=== PATIENT | female | born 1940 | race Caucasian/White ===

== ENCOUNTER 2017-02-22 08:55 | Emergency (ER) | payer MEDICARE ==
[~2017-02-22] VITALS: Ht 162.6 cm; Wt 63.0 kg
[~2017-02-22 08:55] MED LIST: FLUTISP; HYDR12.55 PO; NORV5TAB PO; PROTPAK PO; REST0.05 OU
[2017-02-22] MEDS ORDERED: BIOT50005 SL (09:12)
[2017-02-22] MEDS ORDERED: CENT1TAB PO (09:12)
[2017-02-22] MEDS ORDERED: PROBCAP4 PO (09:12)
[2017-02-22] MEDS ORDERED: BACT800T5 PO (10:19)
[2017-02-22 10:21] VITALS: BP 146/76
[2017-02-22] MEDS ORDERED: BACTRIM 160MG/800MG DS TAB PO ONE (10:30)
== END 2017-02-22 10:31 | disposition home or self-care (01) ==
LOC: M ED 09:20
DX: N30.91 Cystitis, unspecified with hematuria (principal)

== ENCOUNTER → 2017-06-29 | Outpatient (CLI) | payer MEDICARE ==
[~2017-06-29] MED LIST changes: +BACT800T5 PO; +BIOT50005 SL; +CENT1TAB PO; +PROBCAP4 PO
--- NOTE | 2017-06-29 12:01 | REP ---
Right foot series: Four views. History: Foot pain. Findings: Four views of the right foot show Achilles calcaneal spurring. Overall mineralization pattern is normal. Bones, joints and soft tissues are otherwise unremarkable. Impression: Achilles heel spur. No other abnormality. Signed by Jeb Churchill MD 06/29/2017 01:24 P
== END ==
LOC: M WUC 10:51
PROVIDERS: ATTEND Physician Assistant
DX: M79.671 Pain in right foot (principal); M77.31 Calcaneal spur, right foot

== ENCOUNTER → 2017-07-07 | Outpatient (CLI) | payer MEDICARE ==
--- NOTE | 2017-07-07 15:09 | REP ---
Bilateral screening digital mammogram: There are no palpable abnormalities or other breast complaints. The patient states she has not had a clinical breast exam in over a year. Comparison is 06/29/2013. The breast parenchyma is moderately dense, unchanged. There has been no interval development of masses, areas of structural distortion or clusters of microcalcifications typical of malignancy. Impression: There is no evidence of malignancy. BI-RADS/ACR category 1 mammogram. Negative. The patient should have a repeat mammogram in 1 year. This mammogram was interpreted with the aid of an FDA-approved computer-aided detection system. A. Negative x-ray reports should not delay biopsy if a dominant or clinically suspicious mass is present. B. Not all breast cancers are not identified by mammography. C. Adenosis and dense breasts may obscure an underlying neoplasm. The patient letter being requested is M1.
== END ==
LOC: M WHC 09:16
PROVIDERS: ATTEND Nurse Practitioner Adult Health
DX: Z12.31 Encounter for screening mammogram for malignant neoplasm of breast (principal)

== ENCOUNTER → 2017-10-11 | Outpatient (REF) | payer MEDICARE | LOC: M LAB REF 14:28 | DX: R30.0 Dysuria (principal) | CPT/HCPCS: 87186 ==

== ENCOUNTER → 2018-07-08 | Outpatient (CLI) | payer MEDICARE | LOC: M WHC 09:21 | DX: Z12.31 Encounter for screening mammogram for malignant neoplasm of breast (principal) | CPT/HCPCS: 77067 ==

== ENCOUNTER → 2018-09-30 | Outpatient (REF) | payer MEDICARE ==
[2018-09-30 18:30] LABS: PTH INTACT 102.9 PG/ML (18.5-88.0)
[2018-10-02 10:15] LABS: PHOSPHORUS LEVEL 3.4 MG/DL (2.5-4.9)
== END ==
LOC: M LAB REF 16:40
PROVIDERS: ATTEND Nurse Practitioner Adult Health
DX: E83.52 Hypercalcemia (principal)

== ENCOUNTER 2018-10-15 06:29 | Emergency (ER) | payer MEDICARE ==
[~2018-10-15] VITALS: Ht 162.6 cm; Wt 59.1 kg
[2018-10-15] MEDS ORDERED: AZEL1SPR3 NARES (06:36)
[2018-10-15 06:37] VITALS: BP 135/90
[2018-10-15] MEDS ORDERED: MACR100C43 PO (07:11)
== END 2018-10-15 07:38 | disposition home or self-care (01) ==
LOC: M ED 06:29
DX: N30.91 Cystitis, unspecified with hematuria (principal); I10 Essential (primary) hypertension; F41.9 Anxiety disorder, unspecified; K21.9 Gastro-esophageal reflux disease without esophagitis; Z79.899 Other long term (current) drug therapy; Z88.1 Allergy status to other antibiotic agents; Z88.8 Allergy status to other drugs, medicaments and biological substances; Z87.891 Personal history of nicotine dependence

== ENCOUNTER → 2019-02-19 | Outpatient (CLI) | payer MEDICARE ==
[~2019-02-19] MED LIST changes: +AZEL1SPR3 NARES; +FLUT50SP12; -FLUTISP; +MACR100C43 PO
[2019-02-19 14:16] LABS: CALCIUM, URINE 6.4 MG/DL; CREATININE CLEARANCE, URINE 46.9 ML/MIN (75-115); CREATININE, SERUM 0.9 MG/DL (0.6-1.0); CREATININE, URINE 24.3 MG/DL
== END ==
LOC: M LAB 12:45
PROVIDERS: ATTEND Nurse Practitioner Adult Health
DX: E83.52 Hypercalcemia (principal)

== ENCOUNTER → 2019-07-16 | Outpatient (CLI) | payer MEDICARE ==
--- NOTE | 2019-07-16 15:42 | REPMRS ---
Patient History The patient states she had a clinical breast exam in 06/2019. Patient is postmenopausal. No known family history of cancer. Took estrogen for 15 years. Took unspecified hormones for 11 years. 3D TOMOSYNTHESIS WAS PERFORMED. [facility] lifetime risk for breast cancer is 1.6%. Digital Woman Screen Mammo: July 16, 2019 - Exam #: [id number] Bilateral CC and MLO view(s) were taken. Technologist: Emelia Wright, Technologist Prior study comparison: July 08, 2018, bilateral digital woman screen mammo performed at [facility]. July 07, 2017, digital woman screen mammo performed at [facility]. FINDINGS: The breast tissue is heterogeneously dense. This may lower the sensitivity of mammography. There has been no change in the appearance of the mammogram from the prior studies. There is a moderate amount of residual fibroglandular tissue which is fairly symmetric. There is no interval development of dominant mass, areas of architectural distortion, or clustered microcalcification typical of malignancy. Assessment: BI-RADS/ACR category 1 mammogram. Negative Mammogram. Recommendation Routine screening mammogram in 1 year (for women over age 40). This mammogram was interpreted with the aid of an FDA-approved computer-aided dectection system. Electronically Signed By: Berlin Sosa MD 07/16/19 1049
== END ==
LOC: M WHC 14:55
PROVIDERS: ATTEND Internal Medicine
DX: Z12.31 Encounter for screening mammogram for malignant neoplasm of breast (principal); Z78.0 Asymptomatic menopausal state

== ENCOUNTER → 2020-06-21 | Outpatient (REF) | payer MEDICARE | LOC: M LAB REF 12:51 | PROVIDERS: ATTEND Nurse Practitioner Adult Health | DX: R20.3 Hyperesthesia (principal) ==

== ENCOUNTER → 2020-06-27 | Outpatient (REF) | payer MEDICARE | LOC: M LAB REF 12:20 | PROVIDERS: ATTEND Physician Assistant Medical | DX: N39.0 Urinary tract infection, site not specified (principal) ==

== ENCOUNTER → 2020-07-17 | Outpatient (CLI) | payer MEDICARE ==
--- NOTE | 2020-07-17 14:07 | REPMRS ---
Patient History The patient states she has not had a clinical breast exam in over a year. No known family history of cancer. Took estrogen for 15 years. Took unspecified hormones for 11 years. 3D TOMOSYNTHESIS WAS PERFORMED. [facility] lifetime risk for breast cancer is 1.4%. Volpara breast density c. Digital Woman Screen Mammo: July 17, 2020 - Exam #: [id number] Bilateral CC and MLO view(s) were taken. Technologist: Zaria Rea, Technologist Prior study comparison: July 16, 2019, bilateral digital woman screen mammo performed at [facility]. July 08, 2018, bilateral digital woman screen mammo performed at [facility]. FINDINGS: The breast tissue is heterogeneously dense. This may lower the sensitivity of mammography. There has been no change in the appearance of the mammogram from the prior studies. There is a moderate amount of residual fibroglandular tissue which is fairly symmetric. There is no interval development of dominant mass, areas of architectural distortion, or clustered microcalcification typical of malignancy. Assessment: BI-RADS/ACR category 1 mammogram. Negative Mammogram. Recommendation Routine screening mammogram in 1 year (for women over age 40). This mammogram was interpreted with the aid of an FDA-approved computer-aided dectection system. Electronically Signed By: Berlin Sosa MD 07/17/20 0041
== END ==
LOC: M WHC 12:53
PROVIDERS: ATTEND Nurse Practitioner Adult Health
DX: Z12.31 Encounter for screening mammogram for malignant neoplasm of breast (principal)

== ENCOUNTER → 2020-09-05 | Outpatient (CLI) | payer MEDICARE | LOC: M LABSMTC 10:47 | PROVIDERS: ATTEND Family Medicine | DX: Z20.828 Contact with and (suspected) exposure to other viral communicable diseases (principal) ==

== ENCOUNTER → 2020-11-23 | Outpatient (CLI) | payer MEDICARE ==
[~2020-11-23] MED LIST changes: +E-Z-GAS II EFFERVESCENT PACKET (SODIUM BICARB./CITRIC ACID/SIMETHICONE) As Ordered ONE; +E-Z-HD 98% w/w 340GM SUSP BTL As Ordered ONE; +E-Z-PAQUE 96% w/w SUSP 176GM BTL As Ordered ONE
--- NOTE | 2020-11-23 17:03 | REP ---
INDICATION: DYSPHAGIA, UNSPECIFIED. COMPARISON: None TECHNIQUE: This procedure was performed by Radha Tanner [facility], under the direct supervision of Dr. Sosa. Images were reviewed with Dr. Sosa prior to dictation. Liquid barium and gas producing crystals were given in the erect position, as well as liquid barium in the prone oblique position in order to perform a double contrast esophagram examination. FINDINGS: A single view PA chest x-ray is submitted as a communications coordinator film. The superior mediastinal structures are midline. The heart size is within normal limits. The lungs are clear. The oral and pharyngeal stages of deglutition demonstrated laryngeal penetration. Esophageal transport is prompt and efficient and there is no evidence of esophagitis, stricture, or mucosal ring. There is evidence of a small hiatal hernia. There was no gastroesophageal reflux noted . IMPRESSION: 1. Laryngeal penetration. 2. Small hiatal hernia. 0.3 minutes of fluoroscopy time was utilized for this procedure. Some fluoroscopic images are performed with last image hold technology. These images require no additional radiation. <Electronically signed by Radha Tanner > 11/23/20 1518 <Electronically signed by Berlin Sosa > 11/23/20 3203
== END ==
LOC: M RAD 09:40
PROVIDERS: ATTEND Physician Assistant Medical
DX: R13.10 Dysphagia, unspecified (principal)

== ENCOUNTER → 2020-12-28 | Outpatient (CLI) | payer MEDICARE ==
[~2020-12-28] MED LIST changes: +BIOT50004 PO; +CITRTAB18 PO; -E-Z-GAS II EFFERVESCENT PACKET (SODIUM BICARB./CITRIC ACID/SIMETHICONE) As Ordered ONE; -E-Z-HD 98% w/w 340GM SUSP BTL As Ordered ONE; -E-Z-PAQUE 96% w/w SUSP 176GM BTL As Ordered ONE; +ESTR1CRE VA; +FLAX1CAP5 PO; +IRBE75TA4 PO; +RA T500C2 PO; +SYNT25TA PO
== END ==
LOC: M LABSMTC 11:21
PROVIDERS: ATTEND Anesthesiology
DX: Z11.52 Encounter for screening for COVID-19 (principal)

== ENCOUNTER 2021-01-02 07:32 | Day surgery (SDC) | payer MEDICARE ==
[~2021-01-02] VITALS: Ht 162.6 cm; Wt 59.9 kg
[~2021-01-02 07:32] MED LIST changes: +NS 1,000 ML IV ONE
[2021-01-02] MEDS ORDERED: LIDOCAINE 2% 100MG/5ML SDV (FOR ANES.) As Ordered ONE (07:34)
[2021-01-02] MEDS ORDERED: propofoL 500 MG/50 ML VIAL As Ordered ONE (07:34)
--- NOTE | 2021-01-02 10:10 | ROOR ---
Patient Name: Letitia Reyez Procedure Date: 01/02/2021 9:48 AM Date of : 1940 Age: 80 Room: [facility] Gender: Female Note Status: Finalized Procedure: Upper GI endoscopy Indications: Oral phase dysphagia, Heartburn Providers: Loki ROWELL MD Referring MD: Natalie Carter NP Requesting Provider: Medicines: Monitored Anesthesia Care Complications: No immediate complications. Procedure: Pre-Anesthesia Assessment: - The heart rate, respiratory rate, oxygen saturations, blood pressure, adequacy of pulmonary ventilation, and response to care were monitored throughout the procedure. The Endoscope was introduced through the mouth, and advanced to the second part of duodenum. The upper GI endoscopy was accomplished without difficulty. The patient tolerated the procedure well. Findings: Small Hiatal Hernia. The esophagus was normal. The stomach was normal. The examined duodenum was normal. Impression: - Small Hiatal Hernia. - Normal esophagus. - Normal stomach. - Normal examined duodenum. - No specimens collected. Recommendation: - Observe patient's clinical course. - Dysphagia likely reflux related. Rec Continue present medications for GERD/dysphagia. Procedure Code(s): --- Professional --- 15444, Esophagogastroduodenoscopy, flexible, transoral; diagnostic, including collection of specimen(s) by brushing or washing, when performed (separate procedure) Diagnosis Code(s): --- Professional --- R12, Heartburn R13.11, Dysphagia, oral phase CPT copyright 2019 [employer]. All rights reserved. The codes documented in this report are preliminary and upon remote inpatient coder review may be revised to meet current compliance requirements. Loki Rowell MD Loki ROWELL MD 01/02/2021 10:10:28 AM Electronically signed by Loki ROWELL MD Number of Addenda: 0 Note Initiated On: 01/02/2021 9:48 AM Estimated Blood Loss: Estimated blood loss: none.
--- NOTE | 2021-01-02 10:33 | ROOR ---
Patient Name: Letitia Reyez Procedure Date: 01/02/2021 9:49 AM Date of : 1940 Age: 80 Room: [facility] Gender: Female Note Status: Finalized Procedure: Colonoscopy Indications: High risk colon cancer surveillance: Personal history of colonic polyps, Last colonoscopy: September 2015 Providers: Loki ROWELL MD Referring MD: Natalie Carter NP Requesting Provider: Medicines: Monitored Anesthesia Care Complications: No immediate complications. Procedure: Pre-Anesthesia Assessment: - The heart rate, respiratory rate, oxygen saturations, blood pressure, adequacy of pulmonary ventilation, and response to care were monitored throughout the procedure. The Colonoscope was introduced through the anus and advanced to the terminal ileum, with identification of the appendiceal orifice and IC valve. The colonoscopy was performed without difficulty. The patient tolerated the procedure well. The quality of the bowel preparation was good. Findings: The perianal and digital rectal examinations were normal. Two sessile polyps were found in the sigmoid colon and ascending colon. The polyps were diminutive in size. These polyps were removed with a cold snare. Resection was complete, and retrieval was incomplete. (sigmoid polyp lost) Multiple small and large-mouthed diverticula were found in the sigmoid colon. There was narrowing of the colon in association with the diverticular opening. Internal hemorrhoids were found during retroflexion. The hemorrhoids were medium-sized and large. The exam was otherwise without abnormality on direct and retroflexion views. Impression: - Two diminutive polyps in the sigmoid colon and in the ascending colon, removed with a cold snare. Resected and retrieved. - Moderate diverticulosis in the sigmoid colon. There was narrowing of the colon in association with the diverticular opening. - Internal hemorrhoids. - The examination was otherwise normal on direct and retroflexion views. Recommendation: - Consider repeat colonoscopy in 5 yrs, dep on health status at that time. To be discussed with your primary care team. Procedure Code(s): --- Professional --- 49156, Colonoscopy, flexible; with removal of tumor(s), polyp(s), or other lesion(s) by snare technique Diagnosis Code(s): --- Professional --- K63.5, Polyp of colon Z86.010, Personal history of colonic polyps K64.8, Other hemorrhoids K57.30, Diverticulosis of large intestine without perforation or abscess without bleeding CPT copyright 2019 [employer]. All rights reserved. The codes documented in this report are preliminary and upon top frame fitter review may be revised to meet current compliance requirements. Loki Rowell MD Loki ROWELL MD 01/02/2021 10:32:42 AM Electronically signed by Loki ROWELL MD Number of Addenda: 0 Note Initiated On: 01/02/2021 9:49 AM Estimated Blood Loss: Estimated blood loss: none.
[2021-01-02 10:55] VITALS: BP 127/88
== END 2021-01-02 11:00 | disposition home or self-care (01) ==
LOC: M OPP 07:32
PROVIDERS: ATTEND Internal Medicine Gastroenterology
DX: Z12.11 Encounter for screening for malignant neoplasm of colon (principal); Z86.010 Personal history of colon polyps; D12.2 Benign neoplasm of ascending colon; K64.8 Other hemorrhoids; K57.30 Diverticulosis of large intestine without perforation or abscess without bleeding; R13.11 Dysphagia, oral phase; R12 Heartburn; K44.9 Diaphragmatic hernia without obstruction or gangrene; Z79.899 Other long term (current) drug therapy; Z88.0 Allergy status to penicillin; Z88.1 Allergy status to other antibiotic agents; Z88.5 Allergy status to narcotic agent; Z88.8 Allergy status to other drugs, medicaments and biological substances; Z87.891 Personal history of nicotine dependence

== ENCOUNTER → 2021-02-18 | Outpatient (REF) | payer MEDICARE ==
[~2021-02-18] MED LIST changes: -NS 1,000 ML IV ONE
== END ==
LOC: M LAB REF 17:31
PROVIDERS: ATTEND Physician Assistant
DX: N39.0 Urinary tract infection, site not specified (principal)

== ENCOUNTER → 2021-08-17 | Outpatient (CLI) | payer MEDICARE ==
--- NOTE | 2021-08-17 11:20 | REPMRS ---
Patient History The patient states she has not had a clinical breast exam in over a year. No known family history of cancer. Took estrogen for 15 years. Took unspecified hormones for 11 years. Tomosynthesis is performed. Volpara breast density is b. [facility] lifetime risk of breast cancer 1.1%. Patient states no breast complaints today. Patient has signed MRS History Sheet. Digital Woman Screen Mammo: August 17, 2021 - Exam #: [id number] Bilateral CC and MLO view(s) were taken. Technologist: Mary Ellen Oh, Technologist Prior study comparison: July 17, 2020, bilateral digital woman screen mammo performed at [facility]. July 16, 2019, bilateral digital woman screen mammo performed at [facility]. FINDINGS: The breast tissue is heterogeneously dense. This may lower the sensitivity of mammography. There has been no change in the appearance of the mammogram from the prior studies. There is a moderate amount of residual fibroglandular tissue which is fairly symmetric. There is no interval development of dominant mass, areas of architectural distortion, or clustered microcalcification typical of malignancy. Assessment: BI-RADS/ACR category 1 mammogram. Negative Mammogram. Recommendation Routine screening mammogram in 1 year (for women over age 40). This mammogram was interpreted with the aid of an FDA-approved computer-aided dectection system. Electronically Signed By: Berlin Sosa MD 08/17/21 [id number]
== END ==
LOC: M WHC 09:05
PROVIDERS: ATTEND Nurse Practitioner Adult Health
DX: Z12.31 Encounter for screening mammogram for malignant neoplasm of breast (principal)

== ENCOUNTER → 2021-08-24 | Outpatient (REF) | payer MEDICARE ==
[2021-08-24 17:30] LABS: C REACTIVE PROTEIN QUANTITATIV < 0.30 MG/DL (0.00-0.30); TOTAL PROTEIN 7.6 GM/DL (6.4-8.2)
[2021-08-24 17:41] LABS: VITAMIN B12 LEVEL 837 PG/ML (247-911)
[2021-08-27 11:57] LABS: ALBUMIN 4.62 GM/DL (3.29-5.55); ALBUMIN % 60.8 % (55.8-66.1); ALPHA-1-GLOBULIN % 3.5 % (2.9-4.9); ALPHA-1-GLOBULINS 0.27 GM/DL (0.17-0.41); ALPHA-2-GLOBULINS 0.86 GM/DL (0.42-0.99); ALPHA-2-GLOBULINS % 11.3 % (7.1-11.8); BETA-1-GLOBULINS 0.52 GM/DL (0.28-0.60); BETA-1-GLOBULINS % 6.8 % (4.7-7.2); BETA-2-GLOBULINS 0.32 GM/DL (0.19-0.55); BETA-2-GLOBULINS % 4.2 % (3.2-6.5); GAMMA GLOBULIN % 13.4 % (11.1-18.8); GAMMA GLOBULINS 1.02 GM/DL (0.65-1.58)
== END ==
LOC: M LAB REF 16:22
PROVIDERS: ATTEND Internal Medicine
DX: R20.2 Paresthesia of skin (principal); R20.0 Anesthesia of skin

== ENCOUNTER → 2021-08-27 | Outpatient (CLI) | payer MEDICARE ==
--- NOTE | 2021-08-27 11:26 | REP ---
INDICATION: NEUROPATHY FEET COMPARISON: None. TECHNIQUE: AP, lateral, bilateral oblique, and coned-down views of the lumbar spine. FINDINGS: Age-related osteopenia and relatively moderate multilevel degenerative changes include endplate sclerosis, disc space narrowing, osteophytosis and facet arthropathy. No obvious acute fracture/compression injury or subluxation. IMPRESSION: Moderate generalized multilevel degenerative spondylosis. <Electronically signed by Jamie Collazo > 08/27/21 1128
== END ==
LOC: M WUC 10:42
PROVIDERS: ATTEND Internal Medicine
DX: G62.9 Polyneuropathy, unspecified (principal); M51.37 Other intervertebral disc degeneration, lumbosacral region

== ENCOUNTER → 2021-08-30 | Outpatient (CLI) | payer MEDICARE | LOC: M WHC 10:39 | PROVIDERS: ATTEND Internal Medicine | DX: M85.89 Other specified disorders of bone density and structure, multiple sites (principal) ==

== ENCOUNTER → 2021-12-12 | Outpatient (REF) | payer MEDICARE | LOC: M LAB REF 11:04 | PROVIDERS: ATTEND Internal Medicine | DX: R19.7 Diarrhea, unspecified (principal) ==

== ENCOUNTER → 2022-02-07 | Outpatient (REF) | payer MEDICARE | LOC: M LAB REF 13:27 | PROVIDERS: ATTEND Internal Medicine | DX: N39.0 Urinary tract infection, site not specified (principal) ==

== ENCOUNTER → 2022-10-16 | Outpatient (REF) | payer MEDICARE | LOC: M LAB REF 12:29 | PROVIDERS: ATTEND Internal Medicine | DX: R31.9 Hematuria, unspecified (principal); N39.0 Urinary tract infection, site not specified ==

== ENCOUNTER → 2022-10-30 | Outpatient (REF) | payer MEDICARE ==
[2022-10-30 12:14] LABS: APPEARANCE, URINE HAZY (CLEAR); BILIRUBIN, URINE AUTO NEGATIVE (NEGATIVE); BLOOD, URINE BLOOD 1+ (NEGATIVE); COLOR, URINE YELLOW (YELLOW); GLUCOSE, URINE (UA) AUTO NEGATIVE (NEGATIVE); KETONE, URINE AUTO NEGATIVE (NEGATIVE); LEUKOCYTE ESTERASE, URINE AUTO 2+ (NEGATIVE); NITRITE, URINE AUTO NEGATIVE (NEGATIVE); PROTEIN, URINE AUTO NEGATIVE (NEGATIVE); SPECIFIC GRAVITY URINE AUTO 1.005 (1.002-1.035); UROBILINOGEN, URINE AUTO 0.2 mg/dL (0.0-2.0)
[2022-10-30 12:24] LABS: BACTERIA, URINE AUTO NEGATIVE (NEGATIVE); RBC, URINE AUTO 4 /HPF (0-3); SQUAMOUS EPITHELIAL CELL UR AU 3 /HPF (0-6); WBC, URINE AUTO 3 /HPF (0-3)
== END ==
LOC: M LAB REF 10:59
PROVIDERS: ATTEND Internal Medicine
DX: N39.0 Urinary tract infection, site not specified (principal)

== ENCOUNTER 2023-02-11 15:00 | Outpatient (RCR) | payer MEDICARE | END 2023-02-12 | LOC: M PT 15:00 | PROVIDERS: ATTEND Internal Medicine | DX: M25.512 Pain in left shoulder (principal) ==

== ENCOUNTER 2023-02-17 14:16 | Outpatient (RCR) | payer MEDICARE | END 2023-03-14 | LOC: M PT 14:16 | PROVIDERS: ATTEND Internal Medicine | DX: M25.512 Pain in left shoulder (principal) ==

== ENCOUNTER → 2023-05-01 | Outpatient (REF) | payer MEDICARE ==
[2023-05-01 12:26] LABS: APPEARANCE, URINE CLOUDY (CLEAR); BACTERIA, URINE AUTO 1+ (NEGATIVE); BILIRUBIN, URINE AUTO NEGATIVE (NEGATIVE); BLOOD, URINE BLOOD 1+ (NEGATIVE); COLOR, URINE YELLOW (YELLOW); GLUCOSE, URINE (UA) AUTO NEGATIVE (NEGATIVE); KETONE, URINE AUTO NEGATIVE (NEGATIVE); LEUKOCYTE ESTERASE, URINE AUTO 3+ (NEGATIVE); MUCUS, URINE SMALL (NEGATIVE); NITRITE, URINE AUTO NEGATIVE (NEGATIVE); PROTEIN, URINE AUTO NEGATIVE (NEGATIVE); RBC, URINE AUTO 4 /HPF (0-3); SPECIFIC GRAVITY URINE AUTO 1.009 (1.002-1.035); SQUAMOUS EPITHELIAL CELL UR AU 25 /HPF (0-6); TRANSITIONAL EPITHELIAL AUTO 2 /HPF; UROBILINOGEN, URINE AUTO 0.2 mg/dL (0.0-2.0); WBC, URINE AUTO 42 /HPF (0-3)
== END ==
LOC: M LAB REF 11:55
PROVIDERS: ATTEND Internal Medicine
DX: R31.9 Hematuria, unspecified (principal)

== ENCOUNTER → 2023-07-31 | Outpatient (CLI) | payer MEDICARE | LOC: M SLEEP 20:00 | PROVIDERS: ATTEND Nurse Practitioner Adult Health | DX: G47.33 Obstructive sleep apnea (adult) (pediatric) (principal) ==

== ENCOUNTER → 2023-10-09 | Outpatient (CLI) | payer MEDICARE ==
[~2023-10-09] MED LIST changes: -BIOT50004 PO; +BIOT5CAP8 PO; +IRBE75TA11 PO; -IRBE75TA4 PO
== END ==
LOC: M PLAIMG 13:33
PROVIDERS: ATTEND Internal Medicine
DX: R05.9 Cough, unspecified (principal)

== ENCOUNTER → 2024-03-16 | Outpatient (CLI) | payer MEDICARE | LOC: M WHC 09:38 | PROVIDERS: ATTEND Internal Medicine | DX: M85.89 Other specified disorders of bone density and structure, multiple sites (principal) ==

== ENCOUNTER → 2024-09-14 | Outpatient (CLI) | payer MEDICARE ==
[~2024-09-14] MED LIST changes: +E-Z-GAS II EFFERVESCENT PACKET (SODIUM BICARB./CITRIC ACID/SIMETHICONE) As Ordered ONE; +E-Z-HD 98% w/w 340GM SUSP BTL As Ordered ONE; +E-Z-PAQUE 96% w/w SUSP 176GM BTL As Ordered ONE
== END ==
LOC: M RAD 07:49
PROVIDERS: ATTEND Internal Medicine
DX: R13.10 Dysphagia, unspecified (principal); K21.9 Gastro-esophageal reflux disease without esophagitis; K22.89 Other specified disease of esophagus

== ENCOUNTER → 2025-03-25 | Outpatient (REF) | payer MEDICARE ==
[~2025-03-25] MED LIST changes: -E-Z-GAS II EFFERVESCENT PACKET (SODIUM BICARB./CITRIC ACID/SIMETHICONE) As Ordered ONE; -E-Z-HD 98% w/w 340GM SUSP BTL As Ordered ONE; -E-Z-PAQUE 96% w/w SUSP 176GM BTL As Ordered ONE
[2025-03-25 14:07] LABS: APPEARANCE, URINE CLOUDY (CLEAR); BACTERIA, URINE AUTO 2+ (NEGATIVE); BILIRUBIN, URINE AUTO NEGATIVE (NEGATIVE); BLOOD, URINE BLOOD 2+ (NEGATIVE); GLUCOSE, URINE (UA) AUTO NEGATIVE (NEGATIVE); KETONE, URINE AUTO NEGATIVE (NEGATIVE); LEUKOCYTE ESTERASE, URINE AUTO 3+ (NEGATIVE); NITRITE, URINE AUTO NEGATIVE (NEGATIVE); PROTEIN, URINE AUTO NEGATIVE (NEGATIVE); RBC, URINE AUTO 29 /HPF (0-3); SPECIFIC GRAVITY URINE AUTO 1.008 (1.002-1.035); SQUAMOUS EPITHELIAL CELL UR AU 2 /HPF (0-6); UROBILINOGEN, URINE AUTO 0.2 mg/dL (0.0-2.0); WBC, URINE AUTO TNTC /HPF (0-3)
== END ==
LOC: M LAB REF 13:44
PROVIDERS: ATTEND Internal Medicine
DX: R31.9 Hematuria, unspecified (principal)

== ENCOUNTER → 2025-03-28 | Outpatient (REF) | payer MEDICARE ==
[2025-03-28 12:43] LABS: APPEARANCE, URINE CLOUDY (CLEAR); BACTERIA, URINE AUTO 1+ (NEGATIVE); BILIRUBIN, URINE AUTO NEGATIVE (NEGATIVE); BLOOD, URINE BLOOD 2+ (NEGATIVE); GLUCOSE, URINE (UA) AUTO NEGATIVE (NEGATIVE); KETONE, URINE AUTO NEGATIVE (NEGATIVE); LEUKOCYTE ESTERASE, URINE AUTO 3+ (NEGATIVE); MUCUS, URINE SMALL (NEGATIVE); NITRITE, URINE AUTO NEGATIVE (NEGATIVE); PROTEIN, URINE AUTO NEGATIVE (NEGATIVE); RBC, URINE AUTO 27 /HPF (0-3); SPECIFIC GRAVITY URINE AUTO 1.005 (1.002-1.035); SQUAMOUS EPITHELIAL CELL UR AU 3 /HPF (0-6); UROBILINOGEN, URINE AUTO 0.2 mg/dL (0.0-2.0); WBC, URINE AUTO 150 /HPF (0-3)
== END ==
LOC: M LAB REF 11:50
PROVIDERS: ATTEND Internal Medicine
DX: R31.9 Hematuria, unspecified (principal)